=== PATIENT | male | born 1940 | race Caucasian/White ===

== ENCOUNTER 2017-08-27 17:11 | Emergency (ER) | payer OTHER ==
--- NOTE | 2017-08-27 18:29 | CPEKG ---
Heart Rate: 66 RR Interval: 909 P-R Interval: 196 QRSD Interval: 90 QT Interval: 424 QTC Interval: 445 P [place]: 71 QRS [place]: 73 T Wave [place]: 57 EKG Severity - BORDERLINE ECG - EKG Impression: SINUS RHYTHM EKG Impression: BORDERLINE R WAVE PROGRESSION, ANTERIOR LEADS EKG Impression: BORDERLINE ST ELEVATION, INFERIOR LEADS Electronically Signed By: Aidan Márquez 27-Aug-2017 18:48:45
[2017-08-27 18:33] LABS: PLATELET COUNT 196 10^3/uL (150-400)
--- NOTE | 2017-08-27 18:37 | EDPHY ---
H & P Time Seen by Provider: 08/27/17 18:27 HPI/ROS: CHIEF COMPLAINT: Abdominal pain and shortness of breath HISTORY OF PRESENT ILLNESS: Patient was on a vacation in [facility] until last week on Saturday. After he returned he started having umbilical pain in his abdomen which is worse after eating. He feels like it is indigestion. Feels a little bit bloated, but he has had been having 2 soft bowel movements today and feels a bit gassy and bloated. Only previous abdominal surgeries hernia. Not associated with vomiting, does not radiate to the right upper quadrant, not associated with fever or chills. REVIEW OF SYSTEMS: Eye: no change in vision ENT: no sore throat Cardiac: no chest pain or syncope Pulmonary: Has also been mildly short of breath over the last 5 days especially with exercise including swimming or tenderness. He thinks it is [place] just recently [place] to altitude. No cough or sputum production or hemoptysis. Abdomen: HPI Musculoskeletal: no back pain or leg swelling Skin: no rash Neuro: no headache Constitutional: no fever : no urinary symptoms A comprehensive 10 point review of systems is otherwise negative aside from elements mentioned in the history of present illness. PAST MEDICAL HISTORY: Includes cardiac stent and temporal arteritis Social history: Recent travel as noted above, nonsmoker General Appearance: Alert and conversant, cooperative. Eyes: No scleral icterus. ENT, Mouth: Normal mucous membranes. Respiratory: Normal respiratory effort, breath sounds equal, lungs are clear to auscultation. Speaks in full sentences, no wheezing Cardiovascular: Regular rate and rhythm. Gastrointestinal: Abdomen is soft and non tender. No McBurney's point tenderness. Normal male . Neurological: Alert, face symmetric, normal motor and sensory in extremities. Skin: Warm and dry, no rashes. Musculoskeletal: No peripheral edema. No calf tenderness. Psychiatric: Not agitated. Emergency Department course/MDM: Plan for EKG and troponin and D-dimer. A labs to include CBC chemistry lipase and LFT. Urinalysis. 2038: results discussed, does not have any abdominal pain at this time. Soft and nontender. CT scanning of the abdomen discussed and patient declined, which I think is reasonable. Think it is unlikely that he has acute coronary syndrome or pulmonary embolism or pneumonia. Smoking Status: Never smoked Constitutional: Initial Vital Signs Temperature (C) 36.9 C 08/27/17 17:17 Heart Rate 71 08/27/17 17:17 Respiratory Rate 18 08/27/17 17:17 Blood Pressure 145/80 H 08/27/17 17:17 O2 Sat (%) 94 08/27/17 17:17 O2 Delivery Mode Room Air Allergies/Adverse Reactions: clopidogrel bisulfate [From Plavix] Allergy (Mild, Verified 08/27/17 17:16) Rash Home Medications: Medication Instructions Recorded Aspirin [Aspirin 81mg (*)] 81 mg PO DAILY 01/14/16 Atorvastatin Calcium [Lipitor 10 10 mg PO DAILY 01/14/16 mg (*)] Methotrexate 08/27/17 Medical Decision Making - Diagnostics EKG Interpretation: 12-lead EKG interpreted by me; official reading is in trace master. My interpretation is sinus rhythm with late anterior RS transition, normal intervals. Imaging Results: Imaging Impressions Chest X-Ray 08/27/17 18:37 Impression: 1. No acute thoracic abnormality. 2. COPD/emphysema. Imaging: I viewed and interpreted images myself Differential Diagnosis: Differential diagnosis considered for shortness of breath including but not limited to pulmonary infectious process, COPD, asthma, pulmonary embolus and congestive heart failure. Differential diagnosis considered for abdominal pain including but not limited to bowel obstruction, appendicitis, cholecystitis, pancreatitis, gastritis and urinary tract infection. - Data Points Laboratory Results: Laboratory Results 08/27/17 18:20 08/27/17 18:20 08/27/17 08/27/17 08/27/17 19:30 18:20 18:20 WBC RBC Hgb Hct MCV MCH MCHC RDW Plt Count MPV Neut % (Auto) Lymph % (Auto) [place] % (Auto) Eos % (Auto) Baso % (Auto) Nucleat RBC Rel Count Absolute Neuts (auto) Absolute Lymphs (auto) Absolute Monos (auto) Absolute Eos (auto) Absolute Basos (auto) Absolute Nucleated RBC Immature Gran % Immature Gran # APTT 29.4 SEC SEC (23.0-38.0) D-Dimer 0.35 ug/mLFEU ug/mLFEU (0.00-0.50) Sodium 140 mEq/L mEq/L (135-145) Potassium 4.2 mEq/L mEq/L (3.5-5.2) Chloride 102 mEq/L mEq/L (97-110) Carbon Dioxide 29 mEq/l mEq/l (22-31) Anion Gap 9 mEq/L mEq/L (8-16) BUN 17 mg/dL mg/dL (7-23) Creatinine 0.8 mg/dL mg/dL (0.7-1.3) Estimated GFR > 60 Glucose 87 mg/dL mg/dL (70-100) Calcium 8.4 mg/dL L mg/dL (8.5-10.4) Total Bilirubin 0.6 mg/dL mg/dL (0.1-1.4) Conjugated Bilirubin 0.2 mg/dL mg/dL (0.0-0.5) Unconjugated Bilirubin 0.4 mg/dL mg/dL (0.0-1.1) AST 25 IU/L IU/L (17-59) ALT 42 IU/L IU/L (21-72) Alkaline Phosphatase 57 IU/L IU/L (38-126) Troponin I < 0.012 ng/mL ng/mL (0.000-0.034) Total Protein 6.1 g/dL L g/dL (6.3-8.2) Albumin 3.7 g/dL g/dL (3.5-5.0) Lipase 135 IU/L IU/L (23-300) Urine Color YELLOW Urine Appearance CLEAR Urine pH 5.0 (5.0-7.5) Ur Specific [place] 1.012 (1.002-1.030) Urine Protein NEGATIVE (NEGATIVE) Urine Ketones NEGATIVE (NEGATIVE) Urine Blood NEGATIVE (NEGATIVE) Urine Nitrate NEGATIVE (NEGATIVE) Urine Bilirubin NEGATIVE (NEGATIVE) Urine Urobilinogen NEGATIVE EU EU (0.2-1.0) Ur Leukocyte Esterase NEGATIVE (NEGATIVE) Urine Glucose NEGATIVE (NEGATIVE) 08/27/17 18:20 WBC 4.93 10^3/uL 10^3/uL (3.80-9.50) RBC 4.43 10^6/uL 10^6/uL (4.40-6.38) Hgb 13.6 g/dL L g/dL (13.7-17.5) Hct 40.7 % % (40.0-51.0) MCV 91.9 fL fL (81.5-99.8) MCH 30.7 pg pg (27.9-34.1) MCHC 33.4 g/dL g/dL (32.4-36.7) RDW 15.0 % % (11.5-15.2) Plt Count 196 10^3/uL 10^3/uL (150-400) MPV 9.6 fL fL (8.7-11.7) Neut % (Auto) 65.6 % % (39.3-74.2) Lymph % (Auto) 17.6 % % (15.0-45.0) [place] % (Auto) 13.8 % H % (4.5-13.0) Eos % (Auto) 1.8 % % (0.6-7.6) Baso % (Auto) 0.8 % % (0.3-1.7) Nucleat RBC Rel Count 0.0 % % (0.0-0.2) Absolute Neuts (auto) 3.23 10^3/uL 10^3/uL (1.70-6.50) Absolute Lymphs (auto) 0.87 10^3/uL L 10^3/uL (1.00-3.00) Absolute Monos (auto) 0.68 10^3/uL 10^3/uL (0.30-0.80) Absolute Eos (auto) 0.09 10^3/uL 10^3/uL (0.03-0.40) Absolute Basos (auto) 0.04 10^3/uL 10^3/uL (0.02-0.10) Absolute Nucleated RBC 0.00 10^3/uL 10^3/uL (0-0.01) Immature Gran % 0.4 % % (0.0-1.1) Immature Gran # 0.02 10^3/uL 10^3/uL (0.00-0.10) APTT D-Dimer Sodium Potassium Chloride Carbon Dioxide Anion Gap BUN Creatinine Estimated GFR Glucose Calcium Total Bilirubin Conjugated Bilirubin Unconjugated Bilirubin AST ALT Alkaline Phosphatase Troponin I Total Protein Albumin Lipase Urine Color Urine Appearance Urine pH Ur Specific [place] Urine Protein Urine Ketones Urine Blood Urine Nitrate Urine Bilirubin Urine Urobilinogen Ur Leukocyte Esterase Urine Glucose Departure - Departure Disposition: Home, Routine, Self-Care Clinical Impression: Dyspnea Qualifiers: Dyspnea type: unspecified Qualified Code(s): R06.00 - Dyspnea, unspecified Abdominal pain Qualifiers: Abdominal location: periumbilical Qualified Code(s): R10.33 - Periumbilical pain Condition: Good Instructions: Acute Abdominal Pain (ED) Additional Instructions: Urinalysis negative, lipase 135, liver function tests normal. Normal chemistries. White blood cell count 4.9, hematocrit 40. D-dimer 0.35, normal is less than 0.5. EKG does not show ST elevation or ischemic changes, troponin is negative. Referrals: ESTHER DURAN [Other] - As per Instructions
[2017-08-27 21:15] VITALS: TEMP 98.2
[2017-08-27 21:19] VITALS: BP 133/74; PULSE 67; RESP 18; O2SAT 96
== END 2017-08-27 21:19 | disposition home or self-care (01) ==
DX: R06.00 Dyspnea, unspecified (principal); R10.33 Periumbilical pain; Z95.5 Presence of coronary angioplasty implant and graft; Z79.82 Long term (current) use of aspirin